=== PATIENT | female | born 1985 | race Caucasian/White ===

== ENCOUNTER → 2020-09-13 | Outpatient (CLI) | payer MEDICAID | END | disposition home or self-care (01) | LOC: LABWHC1 08:16 | PROVIDERS: ATTEND Obstetrics & Gynecology | DX: Z34.81 Encounter for supervision of other normal pregnancy, first trimester (principal) | CPT/HCPCS: 36415; 84702 ==

== ENCOUNTER 2020-09-15 13:36 | Emergency (ER) | payer MEDICAID ==
[2020-09-15 13:43] VITALS: RESP 20; TEMP 98
--- NOTE | 2020-09-15 14:10 | ED ---
General Adult HPI <Chema Mcgregor - Last Filed: 09/15/20 16:46> - General Source: patient, RN notes reviewed Mode of arrival: ambulatory Limitations: no limitations <Ulisses Parra - Last Filed: 09/15/20 17:05> - General Chief complaint: Recheck/Abnormal Lab/Rx Stated complaint: Needs Blood work,sent from OB Time Seen by Provider: 09/15/20 14:02 - History of Present Illness Initial comments: 34-year-old female presents the emergency department to recheck labs. She says she was sent here by her [facility] to get repeat labs and a serum hCG due to a history of 2 ectopic pregnancies. Patient is elevated and age and consider a geriatric and high risk. She did not that she was having some abdominal cramping but no spotting. She denied any other pain or complaints. She was in no distress. She denied any chest pain shortness of breath headache nausea vomiting diarrhea constipation lower abdominal pain fever fatigue chills (Ulisses Parra) - Related Data Home Medications Medication Instructions Recorded Confirmed Wmt-Zacd-Toubw Acid 1 each PO DAILY 03/16/14 01/31/15 [-U Capsule] Previous Rx's Medication Instructions Recorded Acetaminophen-Codeine 300-30mg 2 each PO Q4HR PRN #30 tab 02/01/15 [Tylenol w/codeine #3] Ibuprofen [Motrin] 600 mg PO Q6HR PRN #30 tab 02/01/15 Allergies Allergy/AdvReac Type Severity Reaction Status Date / Time Sulfa (Sulfonamide Allergy Rash/Hives Verified 09/15/20 13:43 Antibiotics) Review of Systems ROS Other: All systems not noted in ROS Statement are negative. <Chema Mcgregor - Last Filed: 09/15/20 16:46> ROS Other: All systems not noted in ROS Statement are negative. <Ulisses Parra - Last Filed: 09/15/20 17:05> ROS Statement: Those systems with pertinent positive or pertinent negative responses have been documented in the HPI. Past Medical History Past Medical History: No Reported History Additional Past Medical History / Comment(s): OB history: First was an ectopic and she had an exploratory laparotomy with partial right salpingectomy. Second was an SAB. Third was an ectopic and she had a laparoscopic removal of the rest of her right fallopian tube. This is her fourth and she has had care with me since 6 weeks. O+, abs neg, Rub Imm, RPR NR, Hep B neg. Normal anatomy US and normal 1hr GTT. GBS neg. History of Any Multi-Drug Resistant Organisms: None Reported Additional Past Surgical History / Comment(s): Exploratory laparotomy with partial right salpingectomy, removal of ectopic. Laparoscopy with right salpingectomy, removal of ectopic. Past Anesthesia/Blood Transfusion Reactions: No Reported Reaction Past Psychological History: No Psychological Hx Reported Smoking Status: Never smoker Past Alcohol Use History: None Reported Past Drug Use History: None Reported - Past Family History Mother History Unknown: Yes <Ulisses Parra - Last Filed: 09/15/20 17:05> General Exam Limitations: no limitations General appearance: alert, in no apparent distress Head exam: Present: atraumatic, normocephalic, normal inspection Eye exam: Present: normal appearance, PERRL, EOMI. Absent: scleral icterus, conjunctival injection, periorbital swelling ENT exam: Present: normal exam, mucous membranes moist Neck exam: Present: normal inspection. Absent: tenderness, meningismus, lymphadenopathy Respiratory exam: Present: normal lung sounds bilaterally. Absent: respiratory distress, wheezes, rales, rhonchi, stridor Cardiovascular Exam: Present: regular rate, normal rhythm, normal heart sounds. Absent: systolic murmur, diastolic murmur, rubs, gallop, clicks GI/Abdominal exam: Present: soft, normal bowel sounds. Absent: distended, tenderness, guarding, rebound, rigid Extremities exam: Present: normal inspection, full ROM, normal capillary refill. Absent: tenderness, pedal edema, joint swelling, calf tenderness Back exam: Present: normal inspection Neurological exam: Present: alert, oriented X3, CN II-XII intact Psychiatric exam: Present: normal affect, normal mood Skin exam: Present: warm, dry, intact, normal color. Absent: rash <Ulisses Parra - Last Filed: 09/15/20 17:05> Course <Chema Mcgregor - Last Filed: 09/15/20 16:46> Vital Signs 09/15/20 13:41 Temperature 98 F Pulse Rate 76 Respiratory 20 Rate Blood Pressure 124/85 O2 Sat by Pulse 98 Oximetry - Reevaluation(s) Reevaluation #1: 09/15/20 16:26 Case, ultrasound findings and hCG levels were discussed with Dr. Peralta (OBGYN). He states that he cannot rule out the possibility of an ectopic , but he does not feel that the patient meets admission criteria. He states that given the patient's hCG level today, he would expect an IUP to be visualized, but he states that that is not always the case. He recommends having the patient follow up with Dr. Hernandez (her OBGYN) on Thursday for a repeat hCG level, and he recommends advising the patient to return to the ED should she develop worsening pain or vaginal bleeding. He has no further recommendations at this time. 09/15/20 16:46 I discussed the patient's test findings and my discussion with Dr. Peralta as above with her and her myself. Patient denies having any vaginal bleeding/spotting, and she states that her pain is very minimal at this time. Patient is aware that an ectopic has not been completely ruled out. Patient was instructed to, and agrees to, follow-up with her [facility] (Dr. Hernandez) on Thursday as recommended by Dr. Peralta. Patient was also instructed to return to the emergency room immediately should she develop new or worsening pain, dizziness/lightheadedness or vaginal bleeding. Patient feels comfortable with this plan. (Chema Mcgregor) Medical Decision Making - Lab Data Result diagrams: 09/15/20 14:23 09/15/20 14:23 <Chema Mcgregor - Last Filed: 09/15/20 16:46> - Lab Data Result diagrams: 09/15/20 14:23 09/15/20 14:23 - Radiology Data Radiology results: report reviewed, image reviewed <Ulisses Parra - Last Filed: 09/15/20 17:05> - Medical Decision Making 34-year-old female presents for recheck labs for history of ectopic pregnancies, current . CBC, CMP, serum hCG, urinalysis, ABO/Rh ordered Ultrasound ordered. Case discussed with Dr. Mcgregor, was decided the patient to discharge home with follow-up with [facility] on Thursday. (Ulisses Parra) - Lab Data Lab Results 09/15/20 09/15/20 09/15/20 Range/Units 14:23 14:23 14:23 WBC 6.5 (3.8-10.6) k/uL RBC 4.45 (3.80-5.40) m/uL Hgb 14.1 (11.4-16.0) gm/dL Hct 40.1 (34.0-46.0) % MCV 89.9 (80.0-100.0) fL MCH 31.7 (25.0-35.0) pg MCHC 35.3 (31.0-37.0) g/dL RDW 11.6 (11.5-15.5) % Plt Count 265 (150-450) k/uL MPV 6.8 Neutrophils % 72 % Lymphocytes % 19 % Monocytes % 5 % Eosinophils % 2 % Basophils % 0 % Neutrophils # 4.7 (1.3-7.7) k/uL Lymphocytes # 1.2 (1.0-4.8) k/uL Monocytes # 0.3 (0-1.0) k/uL Eosinophils # 0.1 (0-0.7) k/uL Basophils # 0.0 (0-0.2) k/uL Sodium 134 L (137-145) mmol/L Potassium 4.9 (3.5-5.1) mmol/L Chloride 103 (98-107) mmol/L Carbon Dioxide 20 L (22-30) mmol/L Anion Gap 11 mmol/L BUN 18 H (7-17) mg/dL Creatinine 0.69 (0.52-1.04) mg/dL Est GFR (CKD-EPI)AfAm >90 (>60 ml/min/1.73 sqM) Est GFR (CKD-EPI)NonAf >90 (>60 ml/min/1.73 sqM) Glucose 89 (74-99) mg/dL Calcium 9.6 (8.4-10.2) mg/dL Total Bilirubin 0.7 (0.2-1.3) mg/dL AST 34 (14-36) U/L ALT 24 (4-34) U/L Alkaline Phosphatase 55 (38-126) U/L Total Protein 7.4 (6.3-8.2) g/dL Albumin 4.5 (3.5-5.0) g/dL HCG, Qual Detected HCG, Quant mIU/mL Urine Color Yellow Urine Appearance Cloudy H (Clear) Urine pH 5.5 (5.0-8.0) Ur Specific [place] 1.026 (1.001-1.035) Urine Protein Negative (Negative) Urine Glucose (UA) Negative (Negative) Urine Ketones 1+ H (Negative) Urine Blood Negative (Negative) Urine Nitrite Negative (Negative) Urine Bilirubin Negative (Negative) Urine Urobilinogen <2.0 (<2.0) mg/dL Ur Leukocyte Esterase Large H (Negative) Urine RBC 1 (0-5) /hpf Urine WBC 4 (0-5) /hpf Ur Squamous Epith Cells 6 H (0-4) /hpf Urine Bacteria Rare H (None) /hpf Urine Mucus Moderate H (None) /hpf Blood Type Blood Type Recheck Bld Type Recheck Status 09/15/20 09/15/20 Range/Units 14:23 14:23 WBC (3.8-10.6) k/uL RBC (3.80-5.40) m/uL Hgb (11.4-16.0) gm/dL Hct (34.0-46.0) % MCV (80.0-100.0) fL MCH (25.0-35.0) pg MCHC (31.0-37.0) g/dL RDW (11.5-15.5) % Plt Count (150-450) k/uL MPV Neutrophils % % Lymphocytes % % Monocytes % % Eosinophils % % Basophils % % Neutrophils # (1.3-7.7) k/uL Lymphocytes # (1.0-4.8) k/uL Monocytes # (0-1.0) k/uL Eosinophils # (0-0.7) k/uL Basophils # (0-0.2) k/uL Sodium (137-145) mmol/L Potassium (3.5-5.1) mmol/L Chloride (98-107) mmol/L Carbon Dioxide (22-30) mmol/L Anion Gap mmol/L BUN (7-17) mg/dL Creatinine (0.52-1.04) mg/dL Est GFR (CKD-EPI)AfAm (>60 ml/min/1.73 sqM) Est GFR (CKD-EPI)NonAf (>60 ml/min/1.73 sqM) Glucose (74-99) mg/dL Calcium (8.4-10.2) mg/dL Total Bilirubin (0.2-1.3) mg/dL AST (14-36) U/L ALT (4-34) U/L Alkaline Phosphatase (38-126) U/L Total Protein (6.3-8.2) g/dL Albumin (3.5-5.0) g/dL HCG, Qual HCG, Quant 2472.9 mIU/mL Urine Color Urine Appearance (Clear) Urine pH (5.0-8.0) Ur Specific [place] (1.001-1.035) Urine Protein (Negative) Urine Glucose (UA) (Negative) Urine Ketones (Negative) Urine Blood (Negative) Urine Nitrite (Negative) Urine Bilirubin (Negative) Urine Urobilinogen (<2.0) mg/dL Ur Leukocyte Esterase (Negative) Urine RBC (0-5) /hpf Urine WBC (0-5) /hpf Ur Squamous Epith Cells (0-4) /hpf Urine Bacteria (None) /hpf Urine Mucus (None) /hpf Blood Type O Positive Blood Type Recheck O Pos Bld Type Recheck Status No - Radiology Data No evidence of intrauterine at this time. Recommend serial beta hCG measurement follow-up imaging as clinically indicated. 3.3 cm left ovarian cyst. (Ulisses Parra) Disposition <Chema Mcgregor - Last Filed: 09/15/20 16:46> Is patient prescribed a controlled substance at d/c from ED?: No Time of Disposition: 17:04 <Ulisses Parra - Last Filed: 09/15/20 17:05> Clinical Impression: Disposition: HOME SELF-CARE Condition: Stable Instructions (If sedation given, give patient instructions): (ED) Additional Instructions: Please return to the Emergency Department if symptoms worsen or any other concerns. Follow-up with [facility] on Thursday. Follow-up with primary care 1-2 days. Referrals: Alejandra Acevedo NPC [REFERRING] - 1-2 days Steve Peralta DO [Doctor of Osteopathic Medicine] - 1-2 days
[2020-09-15 14:27] LABS: Basophils % (A) 0 %; Eosinophils # (A) 0.1 k/uL (0-0.7); Eosinophils % (A) 2 %; HCT 40.1 % (34.0-46.0); HGB 14.1 gm/dL (11.4-16.0); Lymphocytes # (A) 1.2 k/uL (1.0-4.8); Lymphocytes % (A) 19 %; MCH 31.7 pg (25.0-35.0); MCHC 35.3 g/dL (31.0-37.0); MCV 89.9 fL (80.0-100.0); Mean Platelet Volume 6.8; Monocytes # (A) 0.3 k/uL (0-1.0); Monocytes % (A) 5 %; Neutrophils # (A) 4.7 k/uL (1.3-7.7); Neutrophils % (A) 72 %; Platelet Count 265 k/uL (150-450); RBC 4.45 m/uL (3.80-5.40); RDW 11.6 % (11.5-15.5); WBC 6.5 k/uL (3.8-10.6)
[2020-09-15 14:38] LABS: ALT 24 U/L (4-34); AST 34 U/L (14-36); African American GFR (CKD) >90 (>60 ml/min/1.73 sqM); Albumin 4.5 g/dL (3.5-5.0); Alkaline Phosphatase 55 U/L (38-126); Anion Gap 11 mmol/L; Blood Urea Nitrogen 18 mg/dL (7-17); Calcium 9.6 mg/dL (8.4-10.2); Carbon Dioxide 20 mmol/L (22-30); Chloride 103 mmol/L (98-107); Glucose 89 mg/dL (74-99); Non-African American GFR(CKD) >90 (>60 ml/min/1.73 sqM); Potassium 4.9 mmol/L (3.5-5.1); Sodium 134 mmol/L (137-145); Total Bilirubin 0.7 mg/dL (0.2-1.3); Total Protein 7.4 g/dL (6.3-8.2)
[2020-09-15 14:54] LABS: HCG,Qualitative Serum Detected
[2020-09-15 14:55] LABS: Appearance,Urine Cloudy (Clear); Bacteria,Urine Rare /hpf; Bilirubin,Urine Negative (Negative); Blood,Urine Negative (Negative); Color,Urine Yellow; Glucose,Urine (UA) Negative (Negative); Ketones,Urine 1+ (Negative); Leukocyte Esterase,Urine Large (Negative); Mucus,Urine Moderate /hpf; Nitrite,Urine Negative (Negative); PH, Urine 5.5 (5.0-8.0); Protein,Urine Negative (Negative); RBC,Urine 1 /hpf (0-5); Specific Gravity,Urine 1.026 (1.001-1.035); Squamous Epithelial Cell,Urine 6 /hpf (0-4); Urobilinogen,Urine <2.0 mg/dL (<2.0); WBC,Urine 4 /hpf (0-5)
--- NOTE | 2020-09-15 15:52 | US ---
EXAMINATION TYPE: Transabdominal DATE OF EXAM: 09/15/2020 3:35 PM COMPARISON: NONE CLINICAL HISTORY: History of ectopic. Pelvic cramping x 4 days, 5, para 1, miscarriage 1, ect opic 2, history of partial right fallopian tube removed. EXAM PERFORMED: Transvaginal (TV) and Transabdominal (TA) EXAM MEASUREMENTS: GESTATIONAL AGE / DATING Physician Established: Not established yet Dates by LMP: (5 weeks/3 days) EDC: 05/15/2021 Dates by First Scan: This is 1st scan Dates by Current Scan for: No IUP seen at this time MATERNAL ANATOMY Uterus: 8.2 x 4.8 x 5.7cm, anteverted Endometrium: thickened at 1.7cm Right Ovary: 2.2 x 1.4 x 1.6cm Left Ovary: 4.5 x 3.2 x 3.4cm, enlarged with 3.3 x 2.6 x 2.5cm cyst Post CDS / Adnexa: free fluid within posterior cul de sac, no adnexal masses seen at this time Presence of free fluid: yes GESTATION / SURVEY IUP: No IUP seen at this time Date of LMP: 08/08/2020 Beta HcG (if available): Not available at time of exam IMPRESSION: No evidence of intrauterine at this time. Recommend serial beta hCG measurement and follow- up imaging as clinically indicated. Pelvic free fluid. No evidence of adnexal masses. 3.3 cm left ovarian cyst.
[2020-09-15 17:29] VITALS: BP 107/70; PULSE 72
== END 2020-09-15 17:29 | disposition home or self-care (01) ==
LOC: EC 13:36
DX: Z01.89 Encounter for other specified special examinations (principal); Z88.2 Allergy status to sulfonamides; Z90.721 Acquired absence of ovaries, unilateral; Z87.59 Personal history of other complications of pregnancy, childbirth and the puerperium
CPT/HCPCS: 36415; 76801; 76817; 80053; 81001; 84702; 84703; 85025; 86900; 86901; 99283

== ENCOUNTER → 2020-09-17 | Outpatient (CLI) | payer MEDICAID | END | disposition home or self-care (01) | LOC: LABWHC1 11:11 | PROVIDERS: ATTEND Obstetrics & Gynecology | DX: Z34.81 Encounter for supervision of other normal pregnancy, first trimester (principal); Z3A.00 Weeks of gestation of pregnancy not specified | CPT/HCPCS: 36415; 84702 ==

== ENCOUNTER → 2020-10-08 | Outpatient (CLI) | payer MEDICAID ==
--- NOTE | 2020-10-08 11:22 | US ---
EXAMINATION TYPE: Ultrasound OB <= 14 week fetus DATE OF EXAM: 10/08/2020 10:46 AM COMPARISON: 09/05/2020 CLINICAL HISTORY: 34-year-old female Z36 Confirm Dates. EXAM PERFORMED: Transabdominal (TA) FINDINGS: EXAM MEASUREMENTS: GESTATIONAL AGE / DATING Physician Established: (8 weeks/5 days) EDC: 05/15/2021 Dates by LMP: 8 weeks/5 days) EDC: 05/15/2021 Dates by First Scan: No IUP seen Dates by Current Scan for: (7 weeks/6 days) EDC: 05/21/2021 MATERNAL ANATOMY Uterus: 10.9 x 6.3 x 7.9cm Right Ovary: 2.7 x 1.6 x 1.2cm Left Ovary: 5.5 x 3.8 x 3.9cm Post CDS / Adnexa: wnl Presence of free fluid: no Presence of corpus luteal cyst: Within the left ovary = 3.0 x 3.4 x 3.0cm Presence of subchorionic bleed: no GESTATION / SURVEY CRL: 1.5cm (7 weeks/6 days) Yolk Sac (normal less than 6mm): 3.0mm Heart Rate: 106 bpm Rhythm: Normal IUP: single live IUP Date of LMP: 08/08/2020 Beta HcG (if available): NA IMPRESSION: 1. Single live intrauterine with estimated gestational age of 8 weeks 5 days by LMP. Curren t ultrasound biometry based on CRL is smaller at 7 weeks 6 days. 2. bradycardia with a heart rate of 106 BPM. Short interval follow-up recommended.
[2020-10-08 11:40] LABS: HCT 38.3 % (34.0-46.0); HGB 13.4 gm/dL (11.4-16.0); MCH 31.8 pg (25.0-35.0); MCV 90.8 fL (80.0-100.0); Platelet Count 231 k/uL (150-450); RBC 4.22 m/uL (3.80-5.40); RDW 11.8 % (11.5-15.5); WBC 6.8 k/uL (3.8-10.6)
[2020-10-08 11:54] LABS: African American GFR (CKD) >90 (>60 ml/min/1.73 sqM); Glucose 85 mg/dL (74-99); Non-African American GFR(CKD) >90 (>60 ml/min/1.73 sqM)
[2020-10-08 20:29] LABS: Hepatitis B Surface Antigen Non-Reactive (Non-Reactive)
[2020-10-08 20:37] LABS: HIV 2 AB Non-Reactive (Non-Reactive); HIV AB P24 Non-Reactive (Non-Reactive); HIV P24 AG Non-Reactive (Non-Reactive)
== END | disposition home or self-care (01) ==
LOC: RADUSWWP 10:14
PROVIDERS: ATTEND Obstetrics & Gynecology
DX: O36.8310 Maternal care for abnormalities of the fetal heart rate or rhythm, first trimester, not applicable or unspecified (principal); Z3A.08 8 weeks gestation of pregnancy
CPT/HCPCS: 36415; 76801; 82565; 82947; 85027; 86762; 86780; 86850; 86900; 86901; 87340; 87390

== ENCOUNTER → 2020-10-25 | Outpatient (CLI) | payer MEDICAID ==
--- NOTE | 2020-10-25 14:16 | US ---
EXAMINATION TYPE: Transabdominal DATE OF EXAM: 10/25/2020 12:19 PM COMPARISON: NONE CLINICAL HISTORY: Z36 Encounter for screening of mother. Low heart rate on previous. EXAM PERFORMED: Transabdominal (TA) EXAM MEASUREMENTS: GESTATIONAL AGE / DATING Physician Established: (10 weeks/2 days) EDC: 05/21/2021 Dates by LMP: (10 weeks/2 days) EDC: 05/21/2021 Dates by First Scan: (10 weeks/2 days) EDC: 05/21/2021 Dates by Current Scan for: (11 weeks/0 days) EDC: 05/16/2021 MATERNAL ANATOMY Uterus: 10.9 x 7.5 x 9.8 cm Right Ovary: Obscured by bowel gas. Left Ovary: 4.5 x 1.8 x 2.8 cm Post CDS / Adnexa: wnl Presence of free fluid: no Presence of corpus luteal cyst: yes left. Presence of subchorionic bleed: no GESTATION / SURVEY CRL: 4.11 cm (11 weeks/0 days) Yolk Sac (normal less than 6mm): 3mm Heart Rate: 165 bpm Rhythm: Normal IUP: Viable IUP IMPRESSION: Single viable injury in .
== END | disposition home or self-care (01) ==
LOC: RADUSWWP 12:05
PROVIDERS: ATTEND Obstetrics & Gynecology
DX: O9A.211 Injury, poisoning and certain other consequences of external causes complicating pregnancy, first trimester (principal); Z3A.11 11 weeks gestation of pregnancy
CPT/HCPCS: 76801

== ENCOUNTER → 2021-02-05 | Outpatient (CLI) | payer MEDICAID | END | disposition home or self-care (01) | CPT/HCPCS: 36415; 82950; 85027 ==

== ENCOUNTER → 2021-02-15 | Outpatient (CLI) | payer MEDICAID ==
[2021-02-15 14:01] LABS: Glucose 3 Hour, Gest 91 mg/dL
== END | disposition home or self-care (01) ==
LOC: LABWHC1 07:47
PROVIDERS: ATTEND Obstetrics & Gynecology
DX: O24.419 Gestational diabetes mellitus in pregnancy, unspecified control (principal); Z3A.00 Weeks of gestation of pregnancy not specified
CPT/HCPCS: 36415; 82951; 82952

== ENCOUNTER → 2021-04-16 | Outpatient (CLI) | payer MEDICAID ==
--- NOTE | 2021-04-16 19:12 | US ---
EXAMINATION TYPE: US OB >= 14 wk fetus DATE OF EXAM: 04/16/2021 COMPARISON: US CLINICAL HISTORY: O36.63X0 large for dates Large for dates. Hx 2 ectopic pregnancies. Hx 1 miscarriag e. A1. TECHNIQUE: Transabdominal (TA) GESTATIONAL AGE / DATING Physician Established: (35 weeks/0 days) EDC: 05/21/2021 Dates by LMP: (35 weeks/0 days) EDC: 05/21/2021 Dates by First Scan: (35 weeks/0 days) EDC: 05/21/2021 Dates by Current Scan: (35 weeks/4 days) EDC: 05/17/2021 SURVEY IUP: Single PLACENTA: Anterior. Appears slightly heterogeneous. Hypoechoic area seen: 0.9 x 1.0 x 0 0.7 cm, proba ariel a venous de snatiago. PREVIA: No Previa JOES: 11.7 cm Normal CERVICAL LENGTH (transabdominal: norm > 3.0cm): 3.3 cm BIOMETRY PRESENTATION: Vertex LIE: Longitudinal BPD: 8.7 cm 35 weeks / 1 day HC: 32.2 cm 36 weeks / 3 days AC: 31.4 cm 35 weeks / 3 days FL: 6.8 cm 35 weeks / 0 days. ESTIMATED WEIGHT IN GRAMS: 2,647 grams ESTIMATED WEIGHT IN LBS/OZ: 5 lbs. 13 oz. WEIGHT PERCENTAGE BASED ON ESTABLISHED DATES: 56% HC/AC: 1.03 Normal FL/AC: 22% Normal HEART RATE: 136 bpm RHYTHM: Normal Aquarist notes:Abdominal circumference measurements are very limited due to position and shadowi ng. IMPRESSION: 1. Single live intrauterine with estimated gestational age of 35 weeks 0 days by LMP. Curre nt ultrasound biometry remains concordant (35 weeks 4 days). EFW % 56%.
== END | disposition home or self-care (01) ==
LOC: RADUSWWP 12:15
PROVIDERS: ATTEND Obstetrics & Gynecology
DX: O36.63X0 Maternal care for excessive fetal growth, third trimester, not applicable or unspecified (principal); Z3A.35 35 weeks gestation of pregnancy
CPT/HCPCS: 76805

== ENCOUNTER 2021-05-08 08:15 | Outpatient (CLI) | payer MEDICAID ==
[2021-05-08 09:55] VITALS: BP 114/71; PULSE 86; RESP 16; TEMP 97.9
--- NOTE | 2021-05-21 07:24 | P.MSEPDOC ---
Presenting Problems - Arrival Data Date of Arrival on Unit: 05/08/21 Time of Arrival on Unit: 08:15 Mode of Transport: Ambulatory - Complaint OB-Reason for Admission/Chief Complaint: Possible Onset of Labor Comment: onset of contractions at 2am. pt states occuring every 5 mins. Medical History - Information : 5 Para: 1 Term: 1 : 0 Abortions: Spontaneous or Elective: 3 Number of Living Children: 1 - Gestational Age Gestational Age by DANAY (wks/days): 38 Weeks and 1 Days Review of Systems - Review of Systems Constitutional: No problems Breast: No problems ENT: No problems Cardiovascular: No problems Respiratory: No problems Gastrointestinal: No problems Genitourinary: No problems Musculoskeletal: No problems Neurological: No problems Skin: No problems Vital Signs - Temperature Temperature: 97.9 F Temperature Source: Oral - Pulse Pulse Oximetery Pulse Rate: 86 Pulse Assessment Method: Pulse Oximetry - Respirations Respiratory Rate: 16 Oxygen Delivery Method: Room Air O2 Sat by Pulse Oximetry: 100 - Blood Pressure Right Arm Blood Pressure: 114/71 Blood Pressure Mean: 85 Blood Pressure Source: Automatic Cuff Medical Screen Scoring - Cervical Exam Dilation (cm): 2 Effacement (%): 70 Station: -3 Membranes: Intact - Uterine Contractions Frequency From (mins): 2 Frequency To (mins): 3 Duration From (seconds): 60 Duration To (seconds): 60 Intensity: Mild Resting: Soft to palpation - Assessment - Baby A Baseline FHR: 135 Heart Rate - NICHD Category: Category I (Normal) NST: Reactive Physician Notification - Physician Notified Physician Notified Date: 05/08/21 Physician Notified Time: 09:33 Physician: Vianey Hernandez New Order Received: Yes - Notification Comment Comment: new order to d/c patient home but to stay in town and f/u in office at 11:15 am. Maternal Triage Index - Maternal Triage Index Presenting for scheduled procedure w/no complaint: No - Stat/Priority 1 Stat Priority 1: No - Urgent/Priority 2 Urgent Priority 2: No - Prompt/Priority 3 Prompt Priority 3: No - Non-Urgent/Priority 4 Non-Urgent Priority 4: Yes Criteria Met for Priority 4: pt 38 weeks r/o labor Disposition - Disposition OB Disposition: Discharge to home, Written follow up instructions reviewed Discharge Date: 05/08/21 Discharge Time: 09:41 I agree with the RN Medical Screening Exam: Yes Case reviewed; plan agreed upon as documented in EMR&OBIX.: Yes Diagnosis: PRIMARY INADEQUATE CONTRACTIONS
== END 2021-05-08 09:41 | disposition home or self-care (01) ==
LOC: FBPOP 08:15
PROVIDERS: ATTEND Obstetrics & Gynecology
DX: O62.0 Primary inadequate contractions (principal); Z3A.38 38 weeks gestation of pregnancy; Z88.2 Allergy status to sulfonamides
CPT/HCPCS: 59025; 99213

== ENCOUNTER 2021-05-08 13:44 | Inpatient (IN) | payer MEDICAID ==
[2021-05-08] MEDS ORDERED: TERBUTALINE 1 MG/ML VIAL SQ PRN (14:07)
[2021-05-08] MEDS ORDERED: LIDOCAINE 0.5% (PF) 5 MG/ML (50 ML SDV) SQ PRN (14:07)
[2021-05-08] MEDS ORDERED: OXYTOCIN 10 UNIT/ML 1 ML VIAL IM PRN (14:07)
[2021-05-08] MEDS ORDERED: METHYLERGONOVINE 0.2 MG/ML 1 ML AMP IM PRN (14:07)
[2021-05-08] MEDS ORDERED: CARBOPROST TROMETHAMINE 250 MCG/ML 1 ML AMP IM PRN (14:07)
[2021-05-08] MEDS: LACTATED RINGERS 1,000 ML IV SCH ×2 (14:20→15:00)
[2021-05-08 14:44] LABS: Basophils % (A) 0 %; Eosinophils # (A) 0.1 k/uL (0-0.7); Eosinophils % (A) 1 %; HGB 12.2 gm/dL (11.4-16.0); Lymphocytes # (A) 1.1 k/uL (1.0-4.8); Lymphocytes % (A) 12 %; MCH 31.2 pg (25.0-35.0); MCHC 33.9 g/dL (31.0-37.0); MCV 92.1 fL (80.0-100.0); Mean Platelet Volume 8.2; Monocytes # (A) 0.5 k/uL (0-1.0); Monocytes % (A) 5 %; Neutrophils # (A) 7.5 k/uL (1.3-7.7); Neutrophils % (A) 81 %; Platelet Count 195 k/uL (150-450); RBC 3.91 m/uL (3.80-5.40); RDW 12.2 % (11.5-15.5); WBC 9.3 k/uL (3.8-10.6)
--- NOTE | 2021-05-08 15:50 | P.HPOB ---
History of Present Illness H&P Date: 05/08/21 Chief Complaint: Intrauterine term: Active labor Grisel is a 35-year-old G5 a 1 at 38 weeks gestation who ryes in active labor making cervical change. She was seen this morning dilated to 2 cm and later in the morning was dilated to 2-3. On repeat presentation to labor and delivery she is noted to be dilated to 64 cm and is continuing to make progress. At this time she is dilated 7 cm 90% effaced -2 station artificial rupture membranes was performed with clear fluid noted. She has an epidural which seems to be working well and her pain is currently controlled. Pertinent labs O+ blood type, Rh antibody was negative, rubella is immune, hepatitis B surface antigen/RPR and HIV were negative. Lites that she has had 2 prior ectopic pregnancies which required surgery but no other significant problems with this or any medical history of note. We'll plan continue care with expectation for spontaneous vaginal delivery. Past Medical History Past Medical History: No Reported History Additional Past Medical History / Comment(s): OB history: First was an ectopic and she had an exploratory laparotomy with partial right salpingectomy. Second was an SAB. Third was an ectopic and she had a laparoscopic removal of the rest of her right fallopian tube. This is her fourth and she has had care with me since 6 weeks. O+, abs neg, Rub Imm, RPR NR, Hep B neg. Normal anatomy US and normal 1hr GTT. GBS neg. History of Any Multi-Drug Resistant Organisms: None Reported Additional Past Surgical History / Comment(s): Exploratory laparotomy with partial right salpingectomy, removal of ectopic. Laparoscopy with right salpingectomy, removal of ectopic. Past Anesthesia/Blood Transfusion Reactions: No Reported Reaction Smoking Status: Never smoker - Past Family History Mother History Unknown: Yes Medications and Allergies Home Medications Medication Instructions Recorded Confirmed Type Bvu-Nkme-Zvwzb Acid 1 each PO DAILY 03/16/14 05/08/21 History [-U Capsule] Allergies Allergy/AdvReac Type Severity Reaction Status Date / Time Sulfa (Sulfonamide Allergy Rash/Hives Verified 05/08/21 13:51 Antibiotics) Exam Osteopathic Statement: *. No significant issues noted on an osteopathic structural exam other than those noted in the History and Physical/Consult. Intake and Output 05/08/21 05/08/21 05/08/21 06:59 14:59 22:59 Other: Weight 71.214 kg - OBG Physical Exam Breast: both: normal (no masses) Abdomen: bowel sounds normal, no diffuse tenderness, no bruit present, no guarding noted, no hepatomegaly, no splenomegaly, no mass Vulva: both: normal Vagina: normal moisture, no discharge Cervix: no lesion, no discharge Uterus: normal size, normal contour Adnexa: both: normal Anus/Rectum: normal perianal skin, no rectal mass, no hemorrhoids, heme negative Results Result Diagrams: 05/08/21 14:25
[2021-05-08] MEDS ORDERED: ROPIVACAINE 100 MG, fentaNYL (PF). 200 MCG in SODIUM CHLORIDE 0.9% 76 ML EPIDURAL ONE (17:18)
[2021-05-08] MEDS ORDERED: OXYTOCIN 30 UNITS/500 ML NS 30 UNIT in SALINE 1 500ML.BAG IV SCH (17:40)
[2021-05-08] MEDS ORDERED: HYDROcodone/APAP 5-325MG 1 EACH TAB PO PRN (17:54)
[2021-05-08] MEDS ORDERED: LANOLIN CREAM 5 GM TUBE TOPICAL PRN (17:54)
[2021-05-08] MEDS ORDERED: SIMETHICONE 80 MG CHEWABLE PO PRN (17:54)
[2021-05-08] MEDS ORDERED: diphenhydrAMINE 50 MG/ML 1 ML VIAL IVP PRN ×2 (17:54)
[2021-05-08] MEDS ORDERED: ZOLPIDEM 5 MG TAB PO PRN (17:54)
[2021-05-08] MEDS ORDERED: BENZOCAINE/MENTHOL SPRAY 1 GM/SPRAY AEROSOL TOPICAL PRN (17:54)
[2021-05-08] MEDS ORDERED: ACETAMINOPHEN TAB 325 MG TAB PO PRN (17:54)
[2021-05-08] MEDS ORDERED: HYDROCORTISONE 2.5% RECTAL CREAM 30 GM TUBE RECTAL PRN (17:54)
[2021-05-08] MEDS ORDERED: diphenhydrAMINE 50 MG CAP PO PRN (17:54)
[2021-05-08] MEDS ORDERED: diphenhydrAMINE 25 MG CAP PO PRN (17:54)
--- NOTE | 2021-05-08 17:58 | P.PROBDLV ---
Vaginal Delivery Note - . Vaginal Delivery Note: Grisel progressed to complete and pushing with spontaneous vaginal delivery of a viable male over a second-degree perineal laceration. Following delivery of the head from left occiput anterior position anterior posterior shoulders were easily delivered followed by the remainder the baby. A body cord was noted the time of delivery. It was noted she was having some variable decelerations towards the latter part of the labor process. She's had at least 1 or 2 elevated blood pressures but these were thought to be due to pain during the labor process we'll continue to monitor closely and have they remain elevated we'll plan for eclamptic labs. Following delivery of the baby mouth nares were bulb suctioned and baby was placed on mother's abdomen where the umbilical cord was allowed to pulsate for 30 seconds prior to clamping and cutting. Nursery personnel was present and assumed care. Placenta was then delivered intact Pitocin was added to the IV. Second-degree perineal laceration was then repaired with 3-0 Vicryl following 1% Xylocaine for analgesia. scores were 9 and 9 at one and 5 minutes respectively weight was 7 lbs. 2 oz. Both mother and baby appear stable following delivery.
[2021-05-08 18:59] VITALS: RESP 16
[2021-05-08] MEDS ORDERED: SENNOSIDES-DOCUSATE SODIUM 1 EACH TAB PO SCH (20:00)
[2021-05-08] MEDS: IBUPROFEN 600 MG TAB PO SCH (21:32)
[2021-05-09] MEDS: IBUPROFEN 600 MG TAB PO SCH ×2 (09:18→17:33)
--- NOTE | 2021-05-09 12:20 | P.DS ---
Providers Date of admission: 05/08/21 14:01 Expected date of discharge: 05/09/21 Attending physician: Vianey Hernandez Primary care physician: Stated None - Discharge Diagnosis(es) (1) Normal vaginal delivery Current Visit: No Status: Acute Hospital Course: Patient presented in active labor. She underwent normal vaginal delivery with an epidural. course was uncomfortable.. She'll be discharged home postoperative day #1 in stable condition to follow-up with me in 6 weeks. Plan - Discharge Summary New Discharge Prescriptions: New Ibuprofen [Motrin] 600 mg PO Q6HR PRN #30 tab PRN Reason: Mild Pain Or Fever >= 100.5 No Action Pcp-Fvrw-Urzvg Acid [-U Capsule] 1 each PO DAILY Discharge Medication List Zcz-Kjra-Syghl Acid [-U Capsule] 1 each PO DAILY 03/16/14 [History] Ibuprofen [Motrin] 600 mg PO Q6HR PRN #30 tab 05/09/21 [Rx] Follow up Appointment(s)/Referral(s): Vianey Hernandez DO [Doctor of Osteopathic Medicine] - 06/21/21 10:45 am Discharge Disposition: HOME SELF-CARE
[2021-05-09 18:45] VITALS: BP 104/67; PULSE 65; TEMP 98
== END 2021-05-09 18:45 | disposition home or self-care (01) | DRG 807 ==
LOC: FBPOP 13:44 → 4FBP 14:01
PROVIDERS: ADMIT Obstetrics & Gynecology; ATTEND Obstetrics & Gynecology
PROC: 0KQM0ZZ Repair Perineum Muscle, Open Approach (ICD-10-PCS; principal; 2021-05-08)
PROC: 4A0HX4Z Measurement of Products of Conception, Cardiac Electrical Activity, External Approach (ICD-10-PCS; principal; 2021-05-08)
PROC: 10E0XZZ Delivery of Products of Conception, External Approach (ICD-10-PCS; principal; 2021-05-08)
PROC: 10907ZC Drainage of Amniotic Fluid, Therapeutic from Products of Conception, Via Natural or Artificial Opening (ICD-10-PCS; principal; 2021-05-08)
DX: O76 Abnormality in fetal heart rate and rhythm complicating labor and delivery (principal); Z37.0 Single live birth; O70.1 Second degree perineal laceration during delivery; Z67.41 Type O blood, Rh negative; O26.893 Other specified pregnancy related conditions, third trimester; Z3A.38 38 weeks gestation of pregnancy; Z88.2 Allergy status to sulfonamides
CPT/HCPCS: 85025; 86850; 86900; 86901; 99213

== ENCOUNTER 2022-04-18 09:23 | Emergency (ER) | payer MEDICAID, OTHER ==
[2022-04-18 09:49] VITALS: RESP 18
[2022-04-18 10:24] LABS: Appearance,Urine Cloudy (Clear); Bacteria,Urine Rare /hpf; Bilirubin,Urine Negative (Negative); Blood,Urine Negative (Negative); Color,Urine Light Yellow; Glucose,Urine (UA) Negative (Negative); Ketones,Urine Trace (Negative); Leukocyte Esterase,Urine Large (Negative); Mucus,Urine Many /hpf; Nitrite,Urine Negative (Negative); PH, Urine 6.5 (5.0-8.0); Protein,Urine Negative (Negative); RBC,Urine 1 /hpf (0-5); Specific Gravity,Urine 1.016 (1.001-1.035); Squamous Epithelial Cell,Urine 7 /hpf (0-4); Urobilinogen,Urine <2.0 mg/dL (<2.0); WBC,Urine 12 /hpf (0-5)
[2022-04-18] MEDS ORDERED: KETOROLAC 15 MG/ML 1 ML VIAL IVP STA (10:25)
[2022-04-18 10:26] LABS: Basophils # (A) 0.1 k/uL (0-0.2); Basophils % (A) 1 %; Eosinophils # (A) 0.1 k/uL (0-0.7); Eosinophils % (A) 1 %; HCT 46.4 % (34.0-46.0); HGB 15.2 gm/dL (11.4-16.0); Lymphocytes % (A) 12 %; MCH 29.4 pg (25.0-35.0); MCHC 32.7 g/dL (31.0-37.0); MCV 90.1 fL (80.0-100.0); Mean Platelet Volume 6.9; Monocytes # (A) 0.3 k/uL (0-1.0); Monocytes % (A) 4 %; Neutrophils # (A) 6.4 k/uL (1.3-7.7); Neutrophils % (A) 81 %; Platelet Count 255 k/uL (150-450); RBC 5.15 m/uL (3.80-5.40); RDW 11.8 % (11.5-15.5)
--- NOTE | 2022-04-18 10:36 | ED ---
Abdominal Pain HPI - General Chief Complaint: Abdominal Pain Stated Complaint: Abd pain Time Seen by Provider: 04/18/22 10:05 Source: patient, family, RN notes reviewed Mode of arrival: ambulatory Limitations: no limitations - History of Present Illness Initial Comments: This is a 36-year-old female who presents to the emergency department with right lower quadrant pain. States that the pain is sharp and started last night. Pain is radiating into the right side of the lower back. She was nauseous when this initially occurred, however that has since resolved. She has a history of ruptured ectopic pregnancies, and states that this feels very similar. Does not believe that she is . Denies any fevers, chills, sore throat, cough, dyspnea, chest pain, palpitations, vomiting, diarrhea, or headaches. MD Complaint: abdominal pain Onset/Timin -: days(s) Location: RLQ Radiation: back Quality: sharp - Related Data Home Medications Medication Instructions Recorded Confirmed No Known Home Medications 04/18/22 04/18/22 Allergies Allergy/AdvReac Type Severity Reaction Status Date / Time Sulfa (Sulfonamide Allergy Rash/Hives Verified 04/18/22 11:27 Antibiotics) Review of Systems ROS Statement: Those systems with pertinent positive or pertinent negative responses have been documented in the HPI. ROS Other: All systems not noted in ROS Statement are negative. Past Medical History Past Medical History: No Reported History Additional Past Medical History / Comment(s): OB history: First was an ectopic and she had an exploratory laparotomy with partial right salpingectomy. Second was an SAB. Third was an ectopic and she had a laparoscopic removal of the rest of her right fallopian tube. This is her fourth and she has had care with [facility] since 6 weeks. O+, abs neg, Rub Imm, RPR NR, Hep B neg. Normal anatomy US and normal 1hr GTT. GBS neg. History of Any Multi-Drug Resistant Organisms: None Reported Additional Past Surgical History / Comment(s): Exploratory laparotomy with partial right salpingectomy, removal of ectopic. Laparoscopy with right salpingectomy, removal of ectopic. Past Anesthesia/Blood Transfusion Reactions: No Reported Reaction Past Psychological History: No Psychological Hx Reported Smoking Status: Never smoker Past Alcohol Use History: None Reported Past Drug Use History: None Reported - Past Family History Mother History Unknown: Yes General Exam Limitations: no limitations General appearance: alert, in no apparent distress Head exam: Present: atraumatic, normocephalic, normal inspection Respiratory exam: Present: normal lung sounds bilaterally. Absent: respiratory distress, wheezes, rales, rhonchi, stridor Cardiovascular Exam: Present: regular rate, normal rhythm, normal heart sounds. Absent: systolic murmur, diastolic murmur, rubs, gallop, clicks GI/Abdominal exam: Present: soft, tenderness (RLQ), normal bowel sounds. Absent: distended, guarding, rebound, rigid Neurological exam: Present: alert, oriented X3, CN II-XII intact Psychiatric exam: Present: normal affect, normal mood Skin exam: Present: warm, dry, intact, normal color. Absent: rash Course Vital Signs 04/18/22 04/18/22 04/18/22 09:45 10:59 12:42 Temperature 98.6 F Pulse Rate 88 70 78 Respiratory 18 18 18 Rate Blood Pressure 122/71 142/86 119/74 O2 Sat by Pulse 98 100 99 Oximetry 04/18/22 04/18/22 13:00 13:24 Temperature 98.3 F Pulse Rate 87 Respiratory 18 Rate Blood Pressure 111/84 O2 Sat by Pulse 99 Oximetry Medical Decision Making - Medical Decision Making This is a 36-year-old female who presents to the emergency department with abdominal pain. Lab work was nonactionable. Urinalysis may represent a mild UTI, however it is consistent with contamination as well. Computed tomography scan of the abdomen and pelvis revealed a left ovarian cyst with free fluid in the cul-de-sac consistent with possible ovarian cyst rupture. The appendix was not visualized, however there were no surrounding inflammatory changes to suggest an acute appendicitis. This is also supported by her lab work. It did not make mention of the right ovary or fallopian tube. Patient requests pelvic ultrasound for further evaluation of symptoms due to her history of right fallopian tube rupture. However, this was related to ectopic pregnancies and the patient is not currently . She was given IV Toradol and noted improvement in symptoms. Pelvic ultrasound obtained revealing a cystic structure on the left ovary. This may be related to an ovarian cyst, however neoplasm could not be excluded. Findings were discussed with the patient, instructed her to follow-up with Dr. Hernandez, her [employer], for reevaluation of ongoing symptoms and additional imaging if indicated. No irregularities were noted to the right ovary or right fallopian tube. Advised ibuprofen and Tylenol as needed for pain relief. She can also try applying hot packs. Return precautions reviewed in depth, the patient is instructed to return to the emergency department with any new, worsening, or concerning symptoms. Patient verbalized understanding. This case was discussed in detail with the attending ED physician. Presentation, findings, and treatment plan discussed in detail as well. - Lab Data Result diagrams: 04/18/22 10:22 04/18/22 10:22 Lab Results 04/18/22 04/18/22 04/18/22 Range/Units 09:56 09:56 10:22 WBC 8.0 (3.8-10.6) k/uL RBC 5.15 (3.80-5.40) m/uL Hgb 15.2 (11.4-16.0) gm/dL Hct 46.4 H (34.0-46.0) % MCV 90.1 (80.0-100.0) fL MCH 29.4 (25.0-35.0) pg MCHC 32.7 (31.0-37.0) g/dL RDW 11.8 (11.5-15.5) % Plt Count 255 (150-450) k/uL MPV 6.9 Neutrophils % 81 % Lymphocytes % 12 % Monocytes % 4 % Eosinophils % 1 % Basophils % 1 % Neutrophils # 6.4 (1.3-7.7) k/uL Lymphocytes # 1.0 (1.0-4.8) k/uL Monocytes # 0.3 (0-1.0) k/uL Eosinophils # 0.1 (0-0.7) k/uL Basophils # 0.1 (0-0.2) k/uL Sodium (137-145) mmol/L Potassium (3.5-5.1) mmol/L Chloride (98-107) mmol/L Carbon Dioxide (22-30) mmol/L Anion Gap mmol/L BUN (7-17) mg/dL Creatinine (0.52-1.04) mg/dL Est GFR (CKD-EPI)AfAm (>60 ml/min/1.73 sqM) Est GFR (CKD-EPI)NonAf (>60 ml/min/1.73 sqM) Glucose (74-99) mg/dL Calcium (8.4-10.2) mg/dL Total Bilirubin (0.2-1.3) mg/dL AST (14-36) U/L ALT (4-34) U/L Alkaline Phosphatase (38-126) U/L Total Protein (6.3-8.2) g/dL Albumin (3.5-5.0) g/dL Amylase (30-110) U/L Lipase (23-300) U/L Urine Color Light Yellow Urine Appearance Cloudy H (Clear) Urine pH 6.5 (5.0-8.0) Ur Specific [place] 1.016 (1.001-1.035) Urine Protein Negative (Negative) Urine Glucose (UA) Negative (Negative) Urine Ketones Trace H (Negative) Urine Blood Negative (Negative) Urine Nitrite Negative (Negative) Urine Bilirubin Negative (Negative) Urine Urobilinogen <2.0 (<2.0) mg/dL Ur Leukocyte Esterase Large H (Negative) Urine RBC 1 (0-5) /hpf Urine WBC 12 H (0-5) /hpf Ur Squamous Epith Cells 7 H (0-4) /hpf Urine Bacteria Rare H (None) /hpf Urine Mucus Many H (None) /hpf Urine HCG, Qual Not Detected (Not Detectd) 04/18/22 Range/Units 10:22 WBC (3.8-10.6) k/uL RBC (3.80-5.40) m/uL Hgb (11.4-16.0) gm/dL Hct (34.0-46.0) % MCV (80.0-100.0) fL MCH (25.0-35.0) pg MCHC (31.0-37.0) g/dL RDW (11.5-15.5) % Plt Count (150-450) k/uL MPV Neutrophils % % Lymphocytes % % Monocytes % % Eosinophils % % Basophils % % Neutrophils # (1.3-7.7) k/uL Lymphocytes # (1.0-4.8) k/uL Monocytes # (0-1.0) k/uL Eosinophils # (0-0.7) k/uL Basophils # (0-0.2) k/uL Sodium 137 (137-145) mmol/L Potassium 4.3 (3.5-5.1) mmol/L Chloride 102 (98-107) mmol/L Carbon Dioxide 23 (22-30) mmol/L Anion Gap 12 mmol/L BUN 17 (7-17) mg/dL Creatinine 0.66 (0.52-1.04) mg/dL Est GFR (CKD-EPI)AfAm >90 (>60 ml/min/1.73 sqM) Est GFR (CKD-EPI)NonAf >90 (>60 ml/min/1.73 sqM) Glucose 89 (74-99) mg/dL Calcium 8.9 (8.4-10.2) mg/dL Total Bilirubin 0.9 (0.2-1.3) mg/dL AST 28 (14-36) U/L ALT 16 (4-34) U/L Alkaline Phosphatase 90 (38-126) U/L Total Protein 7.6 (6.3-8.2) g/dL Albumin 4.8 (3.5-5.0) g/dL Amylase 75 (30-110) U/L Lipase 164 (23-300) U/L Urine Color Urine Appearance (Clear) Urine pH (5.0-8.0) Ur Specific [place] (1.001-1.035) Urine Protein (Negative) Urine Glucose (UA) (Negative) Urine Ketones (Negative) Urine Blood (Negative) Urine Nitrite (Negative) Urine Bilirubin (Negative) Urine Urobilinogen (<2.0) mg/dL Ur Leukocyte Esterase (Negative) Urine RBC (0-5) /hpf Urine WBC (0-5) /hpf Ur Squamous Epith Cells (0-4) /hpf Urine Bacteria (None) /hpf Urine Mucus (None) /hpf Urine HCG, Qual (Not Detectd) - Radiology Data Radiology results: report reviewed, image reviewed Disposition Clinical Impression: Left ovarian cyst Disposition: HOME SELF-CARE Instructions (If sedation given, give patient instructions): Ovarian Cyst (ED) Additional Instructions: Return to the emergency department with any new, worsening, or concerning symptoms. Continue to use ibuprofen and alternate this with Tylenol as needed for pain relief. You can also try applying a hot pack. Follow-up with Dr. Hernandez for repeat imaging and reevaluation of symptoms. Is patient prescribed a controlled substance at d/c from ED?: No Referrals: Nonstaff,Physician [Primary Care Provider] - 1-2 days DavidVianey silva DO [Doctor of Osteopathic Medicine] - 1-2 days
[2022-04-18 10:40] LABS: ALT 16 U/L (4-34); AST 28 U/L (14-36); African American GFR (CKD) >90 (>60 ml/min/1.73 sqM); Albumin 4.8 g/dL (3.5-5.0); Alkaline Phosphatase 90 U/L (38-126); Amylase 75 U/L (30-110); Anion Gap 12 mmol/L; Blood Urea Nitrogen 17 mg/dL (7-17); Calcium 8.9 mg/dL (8.4-10.2); Carbon Dioxide 23 mmol/L (22-30); Chloride 102 mmol/L (98-107); Glucose 89 mg/dL (74-99); Lipase 164 U/L (23-300); Non-African American GFR(CKD) >90 (>60 ml/min/1.73 sqM); Potassium 4.3 mmol/L (3.5-5.1); Sodium 137 mmol/L (137-145); Total Bilirubin 0.9 mg/dL (0.2-1.3); Total Protein 7.6 g/dL (6.3-8.2)
--- NOTE | 2022-04-18 11:07 | CT ---
EXAMINATION TYPE: CT abdomen pelvis w con DATE OF EXAM: 04/18/2022 COMPARISON: none HISTORY: RLQ pain CT DLP: 509.2 mGycm CONTRAST: CT scan of the abdomen and pelvis is performed without Oral Contrast and with IV Contrast, patient in jected with 100 mL of Isovue 300. FINDINGS: LUNG BASES-: No visible nodule. No infiltrate. LIVER/GB: No calcified gallstones. No space occupying hepatic lesion. Biliary tree is of normal ca liber. PANCREAS: No inflammation. No distinct mass. SPLEEN: No splenic enlargement. No lesion seen. ADRENALS: No nodule. No thickening. KIDNEYS/BLADDER: No hydronephrosis. No nephrolithiasis. No distinct renal mass. Urinary bladder g rossly unremarkable. BOWEL: Nonvisualization of the appendix however no inflammatory process seen. Normal bowel caliber. No inflammation. GENITAL ORGANS: Left ovarian cyst measuring 3.0 cm. Free fluid within the cul-de-sac as well as the l eft adnexal region may reflect recently ruptured cyst. LYMPH NODES: No greater than 1cm abdominal or pelvic lymph nodes are appreciated. AORTA: No significant abnormality. OSSEOUS STRUCTURES: No significant abnormality is seen. OTHER: No significant additional abnormality is seen. IMPRESSION: 1. Left ovarian cyst with free fluid within the cul-de-sac. 2. Nonvisualization of the appendix although no inflammatory process identified at this time.
[2022-04-18 13:03] VITALS: BP 111/84; PULSE 87
--- NOTE | 2022-04-18 13:08 | US ---
EXAMINATION TYPE: US transvaginal DATE OF EXAM: 04/18/2022 COMPARISON: Same day CT CLINICAL HISTORY: Right sided pelvic pain. Pelvic pain TECHNIQUE: Transvaginal (TV). Transvaginal sonographic images of the pelvis were acquired. Date of LMP: 2 weeks ago EXAM MEASUREMENTS: Uterus: 10.0 x 4.7 x 6.6 cm Endometrial Stripe: 1.0 cm Right Ovary: 3.0 x 2.2 x 2.8 cm Left Ovary: 3.8 x 2.8 x 3.5 cm 1. Uterus: Anteverted wnl 2. Endometrium: wnl 3. Right Ovary: wnl 4. Left Ovary: 2.5 x 2.1 x 2.4 cm Spectral, color and waveform doppler imaging shows good arterial and venous flow within the ovaries ; there is no evidence for ovarian torsion. 5. Bilateral Adnexa: wnl 6. Posterior cul-de-sac: Small amount of free fluid Left ovarian cyst, free fluid within cul-de-sac, similar findings to same day CT IMPRESSION: 1. There is a small amount of free fluid in the pelvis and a 2.5 cm left ovarian cystic lesion. May r epresent an ovarian cyst. Cystic neoplasm is not excluded. Correlate clinically to exclude the possib ility of ectopic . Otherwise recommend follow-up in 6-8 weeks to resolution.
[2022-04-18 13:27] VITALS: TEMP 98.3
== END 2022-04-18 13:27 | disposition home or self-care (01) ==
LOC: EC 09:23
DX: N83.202 Unspecified ovarian cyst, left side (principal); Z88.2 Allergy status to sulfonamides
CPT/HCPCS: 36415; 80053; 82150; 83690; 85025; 81001; 81025; 87086; 93975; 76830; 74177; 99284; 96374; J1885; Q9967